=== PATIENT | female | born 1990 | race Caucasian/White ===

== ENCOUNTER 2018-02-11 16:36 | Emergency (ER) | payer OTHER ==
--- NOTE | 2018-02-11 17:08 | ER Document Report ---
ED Medical Screen (RME) - General Chief Complaint: Chest Pain Stated Complaint: CHEST PAIN Time Seen by Provider: 02/11/18 17:08 TRAVEL OUTSIDE OF THE [place] IN LAST 30 DAYS: No - HPI Patient complains to provider of: Cough and a sensation of some throat swelling Onset: This morning Onset/Duration: Gradual Associated Symptoms: Cough (productive) Exacerbated by: Coughing, Deep breathing Similar symptoms previously: No Recently seen / treated by doctor: No - Related Data Smoking: Cigarettes, Greater than 1 pack/day Frequency of alcohol use: None Drug Abuse: None Allergies/Adverse Reactions: No Known Allergies Allergy (Unverified 02/11/18 17:16) Past Medical History - General Information source: Patient - Social History Cigarette use (# per day): Yes - 1ppd Drug Abuse: None Review of Systems - Review of Systems Constitutional: Fever EENT: Throat pain Cardiovascular: See HPI Respiratory: See HPI Gastrointestinal: No symptoms reported Genitourinary: No symptoms reported Female Genitourinary: No symptoms reported Musculoskeletal: No symptoms reported Skin: No symptoms reported Hematologic/Lymphatic: No symptoms reported Neurological/Psychological: No symptoms reported -: Yes All other systems reviewed and negative Physical Exam - Vital signs Vitals: Temp Pulse Resp BP Pulse Ox 99.4 F 66 22 H 115/65 100 02/11/18 16:49 02/11/18 16:49 02/11/18 16:49 02/11/18 16:49 02/11/18 16:49 - General General appearance: Alert In distress: Mild - HEENT Eyes: Normal Conjunctiva: Normal Cornea: Normal Ears: Normal External canal: Normal Sinus: Normal Nasal: Normal Mouth/Lips: Normal Mucous membranes: Normal Pharynx: Erythema Neck: Normal - Respiratory Respiratory status: Other - Occasional intermittent coughing, difficulty breathing thereafter Chest status: Nontender Breath sounds: Other - Slight wheezes in the left middle and left lower lung field, - Cardiovascular Heart sounds: Normal auscultation Murmur: No Friction rub: No Kenny's crunch: No - Abdominal Inspection: Normal Distension: No distension - Back Back: Normal - Extremities General upper extremity: Normal inspection General lower extremity: Normal inspection - Neurological Neuro grossly intact: Yes Course - Re-evaluation Re-evalutation: 02/11/18 21:39 This 28-year-old female presented for persistent cough as well as shortness of breath. On examination she did have what appeared to be bronchospasm recurrent episodes of coughing. Given her overall well appearance despite her cough believe she is likely not suffering from a more serious process. On examination she does have slightly asymmetric breath sounds with wheezes in the left lower lung chaves. She denies any chest pain at this time notes that she does feel some sensation of shortness of breath. We will obtain a chest x-ray for this patient will administer steroids as well as albuterol in the emergency department for symptomatic relief. Chest x-ray does not demonstrate any obvious infiltrate Albuterol and Decadron seemed to improve this patient's symptoms over some hours , she was able to breathe normally and had few episodes of coughing thereafter. Soft tissue and her about the possibility of further imaging or studies and she denied any desire to do more at this time. Given that that is the case will defer further imaging at this time will plan to treat with Tessalon Perles as well as albuterol and prednisone with return precautions. They agreed with this at this time. - Vital Signs Vital signs: Temp Pulse Resp BP Pulse Ox 99.4 F 66 16 112/68 100 02/11/18 16:49 02/11/18 16:49 02/11/18 19:46 02/11/18 19:46 02/11/18 19:46 Doctor's Discharge - Discharge Clinical Impression: Cough Condition: Stable Disposition: HOME, SELF-CARE Additional Instructions: You were seen today in the emergency room for your cough and wheezing he had an evaluation including a physical exam as well as a chest x-ray, it appears that this is likely reactive airway. You should use the steroids provided as well as the cough medicine provided and the pain medication as needed. Return to the emergency room for any worsening shortness of breath coughing chest pain and inability to eat or drink. Prescriptions: Acetaminophen with Codeine [Tylenol #3 Tablet] 1 each PO Q6HP PRN #5 tablet PRN Reason: For Pain Or Temp Benzonatate [Tessalon Perle 100 mg Capsule] 100 mg PO Q8HP PRN #40 cap PRN Reason: Prednisone 50 mg PO DAILY 4 Days #4 tablet Forms: Smoking Cessation Education
[2018-02-11] MEDS ORDERED: DEXAMETHASONE CONC 1 MG/ML SOLN PO ONE (17:16)
[2018-02-11] MEDS ORDERED: ALBUTEROL SULFATE HFA (90 MCG/PUFF) 8 GM MDI (1 MDI/ER DISP) IH ONE (17:30)
--- NOTE | 2018-02-11 17:53 | RADIOLOGY REPORT (SQ) ---
EXAM DESCRIPTION: CHEST 2 VIEWS COMPLETED DATE/TIME: 02/11/2018 5:33 pm REASON FOR STUDY: cough, asymetric wheeze, worse on LML COMPARISON: None. EXAM PARAMETERS: NUMBER OF VIEWS: two views TECHNIQUE: Digital Frontal and Lateral radiographic views of the chest acquired. RADIATION DOSE: NA LIMITATIONS: none FINDINGS: LUNGS AND PLEURA: No opacities, masses or pneumothorax. No pleural effusion. MEDIASTINUM AND HILAR STRUCTURES: No masses or contour abnormalities. HEART AND VASCULAR STRUCTURES: Heart normal size. No evidence for failure. BONES: No acute findings. HARDWARE: None in the chest. OTHER: No other significant finding. IMPRESSION: NO ACUTE RADIOGRAPHIC FINDING IN THE CHEST. TECHNICAL DOCUMENTATION: JOB ID: [id number] [employer]- All Rights Reserved Reading location - IP/workstation name: [email or web address]
[2018-02-11 19:51] VITALS: BP 112/68
--- NOTE | 2018-02-11 21:46 | EKG REPORT ---
SEVERITY:- BORDERLINE ECG - SINUS RHYTHM SHORT VA INTERVAL, ACCELERATED AV CONDUCTION : Confirmed by: Antoni Caraballo 11-Feb-2018 21:45:37
--- NOTE | 2018-02-12 22:31 | EKG REPORT ---
SEVERITY:- NORMAL ECG - SINUS RHYTHM : Confirmed by: Antoni Caraballo 12-Feb-2018 22:31:28
== END 2018-02-11 19:46 | disposition home or self-care (01) ==
LOC: ER 16:36
DX: R05 Cough (principal); R06.02 Shortness of breath; R06.2 Wheezing; R07.9 Chest pain, unspecified; R09.89 Other specified symptoms and signs involving the circulatory and respiratory systems; Z72.0 Tobacco use
CPT/HCPCS: 93005 ×2; 99285; 71046; 93010 ×2; J3490; J8540